=== PATIENT | female | born 1940 | race Caucasian/White ===

== ENCOUNTER 2017-11-02 18:28 | Inpatient (IN) | payer MEDICARE ==
[~2017-11-02] VITALS: Ht 152.4 cm; Wt 49.9 kg
--- NOTE | 2017-11-02 18:40 | NUR ---
NO REPORT RECIEVED FROM [facility](SENDING FACILITY). PER EMT REPORT PT RECIEVED 325 MG OF TYLENOL AT 1500.
[2017-11-02] MEDS ORDERED: SIMV20TA6 PO (18:50)
[2017-11-02] MEDS ORDERED: CRAN250C PO (18:50)
[2017-11-02] MEDS ORDERED: TRIA60LO14 TP (18:50)
[2017-11-02] MEDS ORDERED: LORA0.5T PO (18:50)
[2017-11-02] MEDS ORDERED: RISP0.5T20 PO (18:50)
[2017-11-02] MEDS ORDERED: MULT1TAB73 PO (18:50)
[2017-11-02] MEDS ORDERED: CITA10TA17 PO (18:50)
[2017-11-02] MEDS ORDERED: ASPI-605 PO (18:50)
[2017-11-02] MEDS ORDERED: ERGO500040 PO (18:50)
[2017-11-02 20:22] LABS: BASOPHILS % (AUTO) 0.3 % (0.0-2.0); EOSINOPHILS % (AUTO) 0.2 % (0.0-7.0); HEMATOCRIT 37.6 % (31.2-41.9); HEMOGLOBIN 12.3 g/dL (10.9-14.3); LYMPHOCYTES # (AUTO) 0.9 K/uL (20.0-40.0); LYMPHOCYTES % (AUTO) 5.9 % (20.5-51.5); MEAN CORPUSCULAR HEMOGLOBIN 28.7 uug (24.7-32.8); MEAN CORPUSCULAR HGB CONC 33 g/dL (32.3-35.6); MEAN CORPUSCULAR VOLUME 87.4 fL (75.5-95.3); MONOCYTES # (AUTO) 0.7 K/uL (2.0-10.0); NEUTROPHILS % (AUTO) 88.6 % (38.5-71.5); PLATELET COUNT (AUTO) 314 K/uL (179-408); WHITE BLOOD COUNT (AUTO) 14.7 K/uL (3.8-11.8)
[2017-11-02 20:23] LABS: CARBON DIOXIDE 26 mmol/L (21-32); CHLORIDE 103 mmol/L (98-107); CREATININE 0.8 mg/dL (0.6-1.3); GLUCOSE 149 mg/dL (74-106); POTASSIUM 4.1 mmol/L (3.5-5.1); UREA NITROGEN, BLOOD 19 mg/dL (7-18)
[2017-11-02 20:35] LABS: ALANINE AMINOTRANSFERASE 17 U/L (14-59); ALKALINE PHOSPHATASE 89 U/L (50-136); ASPARTATE AMINOTRANSFERASE 16 U/L (15-37); BILIRUBIN,DIRECT 0.1 mg/dL (0.0-0.2); BILIRUBIN,TOTAL 0.2 mg/dL (0.2-1.0)
[2017-11-02 21:27] LABS: *BILIRUBIN,URIN NEGATIVE (NEGATIVE); *BLOOD, URINE Trace-intact (NEGATIVE); *CLARITY,URINE SLIGHTLY CLOUDY (CLEAR); *COLOR,URINE YELLOW (YELLOW); *KETONES,URINE NEGATIVE (NEGATIVE); *PROTEIN,URINE NEGATIVE (NEGATIVE); *UROBILINOGEN,URINE 0.2 E.U./dl (NORMAL); LEUKOCYTE ESTERASE ,URINE TRACE (NEGATIVE); NITRITE, URINE POSITIVE (NEGATIVE); PH,URINE 6.5 (5.0-8.0); UGLUCOSE NEGATIVE (NEGATIVE)
[2017-11-02 21:29] LABS: BACTERIA,URINE MANY /HPF (NONE SEEN); RBC,URINE 0-3 /HPF (0-3); SQUAMOUS EPITHELIAL CELL,UR MODERATE /HPF (NONE SEEN)
[2017-11-02] MEDS ORDERED: IV NS 1000 ML 1,000 ML IV ONE (22:00)
--- NOTE | 2017-11-02 22:30 | NUR ---
DANTE spoke to Dr. Fuller (ORTHO)
--- NOTE | 2017-11-02 22:40 | NUR ---
DANTE spoke to Dr. DAY
--- NOTE | 2017-11-02 22:52 | NUR ---
Pt. admitted to TELE, under care of Dr. DAY Belongs List completed
--- NOTE | 2017-11-02 23:55 | NUR ---
In from ER via [facility], 77 y/o female patient admitted to Telemetry, Dx. Left hip fracture. Patient awake, alert able to respond verbally, unclear speech noted. Pleasantly confused no SOB noted. Sinus rhythm on the monitor. Vital signs WNL. Dr. Garcia notified, received orders & carried out. IVF D5 1/2 NS at 75 ml/hr started as ordered. Right AC line intact/patent. Routine admission assessment done. Kept comfortable.
[2017-11-03] VITALS: BP 149/81
[2017-11-03] MEDS ORDERED: ACETAMINOPHEN 650 MG SUPP.RECT RC PRN
[2017-11-03] MEDS ORDERED: ONDANSETRON 4 MG/2 ML VIAL IV PRN
[2017-11-03] MEDS ORDERED: HYDROMORPHONE 2 MG/1 ML DISP.SYRIN IV PRN
[2017-11-03] MEDS: IV D5 1/2 NS 1000 ML 1,000 ML IV PRN ×2 (00:08→15:31)
[2017-11-03 04:00] VITALS: BP 132/76
--- NOTE | 2017-11-03 05:40 | NUR ---
Fairly rested, patient talking to herself. NPO status except meds. Sinus rhythm on the monitor. Afebrile. Repositioned in bed, hip precaution observed. Will continue to monitor. Call light within reach.
[2017-11-03 06:22] LABS: BASOPHILS # (AUTO) 0.1 K/uL (0.0-8.0); EOSINOPHILS % (AUTO) 0.3 % (0.0-7.0); HEMATOCRIT 37.6 % (31.2-41.9); HEMOGLOBIN 12.6 g/dL (10.9-14.3); LYMPHOCYTES # (AUTO) 1.4 K/uL (20.0-40.0); LYMPHOCYTES % (AUTO) 11.4 % (20.5-51.5); MEAN CORPUSCULAR HEMOGLOBIN 29.1 uug (24.7-32.8); MEAN CORPUSCULAR HGB CONC 33 g/dL (32.3-35.6); MEAN CORPUSCULAR VOLUME 87.1 fL (75.5-95.3); MONOCYTES % (AUTO) 7.8 % (0.0-11.0); NEUTROPHILS # (AUTO) 10.1 K/uL (1.8-8.9); NEUTROPHILS % (AUTO) 79.5 % (38.5-71.5); PLATELET COUNT (AUTO) 275 K/uL (179-408); RED BLOOD CELL COUNT(AUTO) 4.32 MIL/uL (3.63-4.92); WHITE BLOOD COUNT (AUTO) 12.7 K/uL (3.8-11.8)
[2017-11-03 06:39] LABS: CARBON DIOXIDE 26 mmol/L (21-32); CHLORIDE 103 mmol/L (98-107); CREATININE 0.7 mg/dL (0.6-1.3); GLUCOSE 136 mg/dL (74-106); PHOSPHOROUS 3.4 mg/dL (2.5-4.9); POTASSIUM 4.3 mmol/L (3.5-5.1); UREA NITROGEN, BLOOD 13 mg/dL (7-18)
--- NOTE | 2017-11-03 08:00 | NUR ---
PATIENT ALERT BUT CONFUSED X3, KEPT NPO EXCEPT MEDS FOR POSSIBLE SURGERY AWAITING DR MALONE FOR ORDERS. WITH CONTINUOUS IV D5 1/2 NS AT 75ML/HR
[2017-11-03] MEDS ORDERED: LORAZEPAM 0.5 MG TABLET PO PRN (08:30)
[2017-11-03] MEDS: CITALOPRAM 10 MG TABLET PO SCH (09:00)
[2017-11-03] MEDS: ASPIRIN EC 81 MG TABLET.DR PO SCH (09:00)
[2017-11-03] MEDS: risperiDONE 0.5 MG TABLET PO SCH ×2 (09:00→15:40)
[2017-11-03 11:23] VITALS: BP 130/68
--- NOTE | 2017-11-03 11:30 | NUR ---
ATTEMPTED TO CONTACT PT'S CONSERVATOR AIMEE ALVAREZ FOR CONSENT LEFT HIP BIPOLAR REPLACEMENT. ATTEMPTED TO CONTACT "[facility]" PER ANSWERING MACHINE IN CASE OF EMERGENCIES, NO RESPONSE. ATTEMPTED TO CALL TO INFORM HIM OF SITUATION, MESSAGE LEFT.
--- NOTE | 2017-11-03 11:30 | NUR ---
NEXT OF KIN PIOTR (NIECE) AND ADAL GOMEZ (SISTER) WERE CONTACTED FOR CONSENT OF THE PT'S LEFT HIP BIPOLAR REPLACEMENT. FAMILY VERBALIZED THAT THEY DON'T MAKE DECISIONS FOR PT BECAUSE SHE HAS A CONSERVATOR. CALLED [facility] TO RECEIVE CONSERVATOR CONTACT INFO.
[2017-11-03] MEDS: ENOXAPARIN SODIUM 30 MG/0.3 ML DISP.SYRIN SUBCUT SCH (13:18)
[2017-11-03 15:32] VITALS: BP 150/77
[2017-11-03 15:50] VITALS: BP 150/68
--- NOTE | 2017-11-03 16:40 | NUR ---
TRIED TO REACH NEXT OF KIN FOR FOLLOW UP REGARDING CONSENT FOR SURGERY TO NO AVAIL. MESSAGE LEFT. DR MALONE AND O.R. AWARE.
--- NOTE | 2017-11-03 19:53 | NUR ---
Attempted to reach next of kin for procedure consent. Unable to reach.
[2017-11-03] MEDS: SIMVASTATIN 20 MG TABLET PO SCH (20:17)
[2017-11-03 20:30] VITALS: BP 136/76
[2017-11-04 05:39] VITALS: BP 151/83
[2017-11-04 06:20] LABS: BASOPHILS # (AUTO) 0.1 K/uL (0.0-8.0); BASOPHILS % (AUTO) 0.7 % (0.0-2.0); EOSINOPHILS # (AUTO) 0.1 K/uL (0.0-0.7); EOSINOPHILS % (AUTO) 0.9 % (0.0-7.0); HEMATOCRIT 39.7 % (31.2-41.9); HEMOGLOBIN 13.1 g/dL (10.9-14.3); LYMPHOCYTES # (AUTO) 1.3 K/uL (20.0-40.0); LYMPHOCYTES % (AUTO) 11.2 % (20.5-51.5); MEAN CORPUSCULAR HEMOGLOBIN 28.8 uug (24.7-32.8); MEAN CORPUSCULAR HGB CONC 33 g/dL (32.3-35.6); MEAN CORPUSCULAR VOLUME 87.1 fL (75.5-95.3); MONOCYTES # (AUTO) 1.3 K/uL (2.0-10.0); MONOCYTES % (AUTO) 10.5 % (0.0-11.0); NEUTROPHILS # (AUTO) 9.2 K/uL (1.8-8.9); NEUTROPHILS % (AUTO) 76.7 % (38.5-71.5); PLATELET COUNT (AUTO) 296 K/uL (179-408); RED BLOOD CELL COUNT(AUTO) 4.56 MIL/uL (3.63-4.92)
[2017-11-04 06:33] LABS: ALANINE AMINOTRANSFERASE 19 U/L (14-59); ALKALINE PHOSPHATASE 77 U/L (50-136); ASPARTATE AMINOTRANSFERASE 17 U/L (15-37); BILIRUBIN,TOTAL 0.5 mg/dL (0.2-1.0); CARBON DIOXIDE 25 mmol/L (21-32); CHLORIDE 102 mmol/L (98-107); CREATININE 0.7 mg/dL (0.6-1.3); GLUCOSE 134 mg/dL (74-106); MAGNESIUM 2.1 mg/dL (1.8-2.4); PHOSPHOROUS 2.9 mg/dL (2.5-4.9); POTASSIUM 3.9 mmol/L (3.5-5.1); TOTAL PROTEIN, SERUM 7.4 g/dL (6.4-8.2); UREA NITROGEN, BLOOD 7 mg/dL (7-18)
[2017-11-04] MEDS: IV D5 1/2 NS 1000 ML 1,000 ML IV PRN (06:34)
[2017-11-04] MEDS: ENOXAPARIN SODIUM 30 MG/0.3 ML DISP.SYRIN SUBCUT SCH (08:29)
[2017-11-04] MEDS: ASPIRIN EC 81 MG TABLET.DR PO SCH (08:29)
[2017-11-04] MEDS: risperiDONE 0.5 MG TABLET PO SCH ×2 (08:33→17:00)
[2017-11-04] MEDS: CITALOPRAM 10 MG TABLET PO SCH (08:33)
[2017-11-04] MEDS: MULTIVITAMINS,THERAPEUTIC TABLET PO SCH (08:33)
--- NOTE | 2017-11-04 08:48 | NUR ---
Notified of pt's labs and fever. Received orders to hold Aspirin and Lovenox.
[2017-11-04] MEDS ORDERED: ERGOCALCIFEROL 50,000 UNIT CAPSULE PO SCH (09:00)
[2017-11-04] MEDS ORDERED: TRIAMCINOLONE ACETONIDE 0.1% 60 ML LOTION BOTTLE TP PRN (09:00)
[2017-11-04] MEDS: POTASSIUM CHLORIDE 10 MEQ in IV NS 1000 ML 1,000 ML IV PRN ×2 (10:54→20:33)
[2017-11-04 11:40] VITALS: BP 119/62
[2017-11-04] MEDS ORDERED: VECURONIUM BROMIDE 10 MG VIAL IV ONE (12:02)
[2017-11-04] MEDS ORDERED: DEXAMETHASONE SOD PHOSPHATE 4 MG INJ IV ONE (12:02)
[2017-11-04] MEDS ORDERED: SEVOFLURANE 250 ML BOTTLE IH ONE (12:02)
[2017-11-04] MEDS ORDERED: ONDANSETRON 4 MG/2 ML VIAL IV ONE (12:02)
[2017-11-04] MEDS ORDERED: CEFAZOLIN 1 G VIAL MC ONE (12:02)
[2017-11-04] MEDS ORDERED: IV NORMAL SALINE 1000 ML BAG IV ONE (12:02)
[2017-11-04] MEDS ORDERED: ETOMIDATE 20 MG/10 ML VIAL MC ONE (12:02)
[2017-11-04 15:33] VITALS: BP 137/72
--- NOTE | 2017-11-04 15:50 | NUR ---
Called Dr. Fuller to report no type and cross match ordered, no preop antibiotic, WBC = 12, UA shows bacteria in urine, temp this AM 99.5. Afebrile at this time. Attempted to reach Dr hancock 3. Called office, called surgery, called other office, called cell phone and left message.
--- NOTE | 2017-11-04 16:15 | NUR ---
Unable to reach Dr. Fuller, surgery department called and notified elevated WBC, earlier fever in AM, no blood type and cross match available for surgery, no preop antibiotic.
[2017-11-04] MEDS ORDERED: POLYMYXIN B SULFATE 500,000 UNITS, BACITRACIN 50,000 UNITS, NORMAL SALINE 20 ML MC ONE ×3 (16:45)
[2017-11-04] MEDS ORDERED: VANCOMYCIN 1000 MG VIAL ONE (17:40)
--- NOTE | 2017-11-04 19:10 | NUR ---
Received report from day shift nurse henry Barrett downstairs undergoing ORIF of left hip at this time.
[2017-11-04] MEDS ORDERED: MORPHINE SULFATE 4 MG/1 ML DISP.SYRIN IV PRN (19:15)
[2017-11-04] MEDS ORDERED: HYDROCODONE/APAP 10-325 MG TABLET PO PRN (19:30)
--- NOTE | 2017-11-04 19:45 | NUR ---
Received patient from post op, accompanied by nurse Griffin and provided report of pt current condition. Patient asleep at this time. Arouse to verbal and tactile stimuli. kept her eyes closed, only mumbles. No s/sx of pain or SOB noted. RFA IV site intact and patent. IVF infusing. Temp os 99.3. Cooling measure provided. Left hip with dressing intact. Safety measure initiated and call bruner within reach. Addendum: 11/05/17 at 0643 by RICHMOND LEON RN Pt will be on regular diet per SHAUNA/Gaby.
[2017-11-04 20:00] VITALS: BP 123/62
[2017-11-04] MEDS: SIMVASTATIN 20 MG TABLET PO SCH (20:32)
--- NOTE | 2017-11-04 23:00 | NUR ---
Temp. down to 98.0 Orally.
[2017-11-05] MEDS: CEFAZOLIN 1 G in PREMIXED 1 EACH IV SCH ×2 (00:40→05:16)
[2017-11-05 04:00] VITALS: BP 116/65
--- NOTE | 2017-11-05 06:06 | NUR ---
Patient appears comfortable in bed. Arouse to verbal and tactile stimuli. Only mumbles. On O2 at 2LPM via NC in place. O2 sat at 99%. IV site on RFA intact and patent. IVF infusing. No adverse reaction noted from IV ABX. Left hip with dressing intact. Abductor pillow in place. FC intact and draining via gravity. Safety measure maintained and call bruner within reach.
[2017-11-05 06:14] LABS: BASOPHILS % (AUTO) 0.2 % (0.0-2.0); HEMATOCRIT 33.8 % (31.2-41.9); HEMOGLOBIN 11.2 g/dL (10.9-14.3); LYMPHOCYTES # (AUTO) 0.7 K/uL (20.0-40.0); LYMPHOCYTES % (AUTO) 5.6 % (20.5-51.5); MEAN CORPUSCULAR HGB CONC 33 g/dL (32.3-35.6); MEAN CORPUSCULAR VOLUME 87.5 fL (75.5-95.3); MONOCYTES # (AUTO) 1.5 K/uL (2.0-10.0); MONOCYTES % (AUTO) 11.8 % (0.0-11.0); NEUTROPHILS # (AUTO) 10.6 K/uL (1.8-8.9); NEUTROPHILS % (AUTO) 82.4 % (38.5-71.5); PLATELET COUNT (AUTO) 279 K/uL (179-408); RED BLOOD CELL COUNT(AUTO) 3.86 MIL/uL (3.63-4.92); WHITE BLOOD COUNT (AUTO) 12.9 K/uL (3.8-11.8)
[2017-11-05 07:06] LABS: ALANINE AMINOTRANSFERASE 17 U/L (14-59); ALKALINE PHOSPHATASE 58 U/L (50-136); ASPARTATE AMINOTRANSFERASE 32 U/L (15-37); BILIRUBIN,TOTAL 0.3 mg/dL (0.2-1.0); CARBON DIOXIDE 24 mmol/L (21-32); CHLORIDE 107 mmol/L (98-107); CREATININE 0.7 mg/dL (0.6-1.3); GLUCOSE 132 mg/dL (74-106); PHOSPHOROUS 2.9 mg/dL (2.5-4.9); POTASSIUM 4.5 mmol/L (3.5-5.1); TOTAL PROTEIN, SERUM 6.3 g/dL (6.4-8.2); UREA NITROGEN, BLOOD 10 mg/dL (7-18)
--- NOTE | 2017-11-05 09:29 | NUR ---
Seen by PT: 2person assist, unable to follow commands. PT will come back later in the day
[2017-11-05] MEDS: CITALOPRAM 10 MG TABLET PO SCH (09:30)
[2017-11-05] MEDS: CEFTRIAXONE 1 G in IV DEXTROSE 5% 50 ML IV SCH (09:30)
[2017-11-05] MEDS: MULTIVITAMINS,THERAPEUTIC TABLET PO SCH (09:30)
[2017-11-05] MEDS: risperiDONE 0.5 MG TABLET PO SCH ×2 (09:31→17:35)
[2017-11-05] MEDS: ASPIRIN EC 81 MG TABLET.DR PO SCH (09:31)
[2017-11-05] MEDS: ENOXAPARIN SODIUM 30 MG/0.3 ML DISP.SYRIN SUBCUT SCH (09:32)
--- NOTE | 2017-11-05 10:15 | NUR ---
Gila Kingsley called stating that she's the pt's sister and wants to be informed were the pt gets discharge too. Will inform case management
[2017-11-05 11:39] VITALS: BP 103/56
[2017-11-05] MEDS: POTASSIUM CHLORIDE 10 MEQ in IV NS 1000 ML 1,000 ML IV PRN (14:09)
--- NOTE | 2017-11-05 14:25 | NUR ---
Pre-medicated pt for physical therapy session
--- NOTE | 2017-11-05 14:45 | NUR ---
Per PT patient's BP in the 70's. Gave pt juice and water, then placed pt in Trendelenburg position. Pt is arousable to name. Pt is able to answer question in [place] if she is okay, "[place]".
--- NOTE | 2017-11-05 15:05 | NUR ---
Call MD to inform about decrease BP, waiting for a call back
[2017-11-05 15:25] VITALS: BP 76/38
[2017-11-05 15:40] VITALS: BP 82/36
[2017-11-05 17:35] VITALS: BP 107/57
--- NOTE | 2017-11-05 19:20 | NUR ---
Received pt lying in bed. Patient asleep, arouse to verbal and tactile stimuli, opens her eyes half way. Non-verbal. O2 at 2LPM via NC in place. O2 sat at 98%. No s/sx of pain or SOB noted. RFA IV site intact and patent. IVF infusing. Left hip dressing remains intact. Safety measure initiated and call bruner within reach.
[2017-11-05 20:03] VITALS: BP 104/55
[2017-11-05] MEDS: SIMVASTATIN 20 MG TABLET PO SCH (21:09)
[2017-11-06] MEDS: POTASSIUM CHLORIDE 10 MEQ in IV NS 1000 ML 1,000 ML IV PRN ×2 (03:48→18:25)
[2017-11-06 04:00] VITALS: BP 117/61
--- NOTE | 2017-11-06 05:51 | NUR ---
Patient slept well last night, arouse to verbal and tactile stimuli, non-verbal, mumbles at times. On O2 at 2LPM via NC in place. O2 sat at 100%. IV site on RFA intact and patent. IVF infusing. Left hip with dressing remains intact. Abductor pillow in place. FC intact and draining via gravity. Safety measure maintained and call bruner within reach.
--- NOTE | 2017-11-06 07:10 | NUR ---
RECEIVED REPORT FROM EXTENSION WORK INSTRUCTOR NURSE, PATIENT IN BED ASLEEP, NO DISTRESS NOTED, BED IN LOW POSITION, SIDE RAILS UP X2.
[2017-11-06] MEDS: ASPIRIN EC 81 MG TABLET.DR PO SCH (08:08)
[2017-11-06] MEDS: CEFTRIAXONE 1 G in IV DEXTROSE 5% 50 ML IV SCH (08:08)
[2017-11-06] MEDS: MULTIVITAMINS,THERAPEUTIC TABLET PO SCH (08:08)
[2017-11-06] MEDS: CITALOPRAM 10 MG TABLET PO SCH (08:08)
[2017-11-06] MEDS: risperiDONE 0.5 MG TABLET PO SCH ×2 (08:08→16:12)
[2017-11-06] MEDS: ENOXAPARIN SODIUM 30 MG/0.3 ML DISP.SYRIN SUBCUT SCH (08:10)
--- NOTE | 2017-11-06 09:44 | NUR ---
Removed sultana per protocol, post-op day two
[2017-11-06 11:47] VITALS: BP 108/53
[2017-11-06 13:12] LABS: BASOPHILS % (AUTO) 0.2 % (0.0-2.0); EOSINOPHILS # (AUTO) 0.1 K/uL (0.0-0.7); EOSINOPHILS % (AUTO) 1.2 % (0.0-7.0); HEMATOCRIT 26.1 % (31.2-41.9); HEMOGLOBIN 8.7 g/dL (10.9-14.3); LYMPHOCYTES % (AUTO) 9.8 % (20.5-51.5); MEAN CORPUSCULAR HEMOGLOBIN 29.3 uug (24.7-32.8); MEAN CORPUSCULAR HGB CONC 33 g/dL (32.3-35.6); MEAN CORPUSCULAR VOLUME 87.6 fL (75.5-95.3); MONOCYTES # (AUTO) 1.3 K/uL (2.0-10.0); MONOCYTES % (AUTO) 12.6 % (0.0-11.0); NEUTROPHILS # (AUTO) 7.7 K/uL (1.8-8.9); NEUTROPHILS % (AUTO) 76.2 % (38.5-71.5); PLATELET COUNT (AUTO) 265 K/uL (179-408); RED BLOOD CELL COUNT(AUTO) 2.98 MIL/uL (3.63-4.92); WHITE BLOOD COUNT (AUTO) 10.1 K/uL (3.8-11.8)
[2017-11-06 13:26] LABS: ALANINE AMINOTRANSFERASE 27 U/L (14-59); ALKALINE PHOSPHATASE 60 U/L (50-136); ASPARTATE AMINOTRANSFERASE 54 U/L (15-37); BILIRUBIN,TOTAL 0.2 mg/dL (0.2-1.0); CARBON DIOXIDE 27 mmol/L (21-32); CHLORIDE 105 mmol/L (98-107); CREATININE 0.6 mg/dL (0.6-1.3); GLUCOSE 133 mg/dL (74-106); PHOSPHOROUS 2.3 mg/dL (2.5-4.9); POTASSIUM 3.8 mmol/L (3.5-5.1); TOTAL PROTEIN, SERUM 5.8 g/dL (6.4-8.2); UREA NITROGEN, BLOOD 11 mg/dL (7-18)
[2017-11-06 16:05] VITALS: BP 90/47
[2017-11-06] MEDS: ASPIRIN EC 325 MG TABLET.DR PO SCH (17:02)
--- NOTE | 2017-11-06 18:00 | NUR ---
PATIENT HAS BEEN COOPERATIVE WITH CARE, PATIENT ONLY COMPLAINED OF MILD HEADACHE. PATIENT GOT UP WITH PHYSICAL THERAPY TWICE. PATIENT REMAINS STABLE, NO DISTRESS NOTED, BED IN LOW POSITION, SIDE RAILS UP X2, BED IN LOW POSITION, SIDE RAILS UP X2.
[2017-11-06 19:00] VITALS: BP 90/41
[2017-11-06] MEDS ORDERED: NEUTRA PHOS PACKET PO ONE (19:15)
--- NOTE | 2017-11-06 19:30 | NUR ---
RECEIVED PATIENT AWAKE ON BED. AO X 1, BUT NON VERBAL. NO SIGNS OF RESPIRATORY DISTRESS. ON O2 AT 2L/MIN VIA NC, O2 SATURATION AT 96%. IV ON LEFT FOREARM, PATENT AND INTACT. IVF INFUSING. SAFETY MEASURES INITIATED. CALL MACIAS WITHIN REACH.
[2017-11-06] MEDS: SIMVASTATIN 20 MG TABLET PO SCH (20:21)
[2017-11-07 04:00] VITALS: BP 120/60
[2017-11-07 06:39] LABS: MAGNESIUM 1.8 mg/dL (1.8-2.4); PHOSPHOROUS 2.5 mg/dL (2.5-4.9)
--- NOTE | 2017-11-07 06:52 | NUR ---
PATIENT REMAINED RESTED. NO SOB, NO CHEST PAIN, VITAL SIGNS WNL. SAFETY MEASURES MAINTAINED.
[2017-11-07 07:00] LABS: BASOPHILS % (AUTO) 0.4 % (0.0-2.0); EOSINOPHILS # (AUTO) 0.2 K/uL (0.0-0.7); HEMATOCRIT 24.5 % (31.2-41.9); HEMOGLOBIN 8.3 g/dL (10.9-14.3); LYMPHOCYTES # (AUTO) 1.3 K/uL (20.0-40.0); LYMPHOCYTES % (AUTO) 12.4 % (20.5-51.5); MEAN CORPUSCULAR HEMOGLOBIN 29.7 uug (24.7-32.8); MEAN CORPUSCULAR HGB CONC 34 g/dL (32.3-35.6); MEAN CORPUSCULAR VOLUME 87.3 fL (75.5-95.3); MONOCYTES # (AUTO) 1.2 K/uL (2.0-10.0); MONOCYTES % (AUTO) 10.9 % (0.0-11.0); NEUTROPHILS # (AUTO) 8.1 K/uL (1.8-8.9); NEUTROPHILS % (AUTO) 74.3 % (38.5-71.5); PLATELET COUNT (AUTO) 273 K/uL (179-408); RED BLOOD CELL COUNT(AUTO) 2.81 MIL/uL (3.63-4.92); WHITE BLOOD COUNT (AUTO) 10.9 K/uL (3.8-11.8)
[2017-11-07] MEDS ORDERED: PANTOPRAZOLE SODIUM 40 MG TABLET.DR PO SCH (07:00)
--- NOTE | 2017-11-07 07:10 | NUR ---
received report from welder 2nd shift nurse, patient in bed asleep, no distress noted, bed in low position, side rails up x2, bed alarm on.
[2017-11-07] MEDS: MULTIVITAMINS,THERAPEUTIC TABLET PO SCH (08:33)
[2017-11-07] MEDS: CITALOPRAM 10 MG TABLET PO SCH (08:33)
[2017-11-07] MEDS: CEFTRIAXONE 1 G in IV DEXTROSE 5% 50 ML IV SCH (08:33)
[2017-11-07] MEDS: risperiDONE 0.5 MG TABLET PO SCH (08:33)
[2017-11-07] MEDS: ASPIRIN EC 325 MG TABLET.DR PO SCH (08:33)
[2017-11-07] MEDS ORDERED: HYDR-548 PO (09:40)
[2017-11-07] MEDS ORDERED: PANT40TA2 PO (09:40)
[2017-11-07] MEDS ORDERED: CEFT1VIA15 IV (09:40)
[2017-11-07] MEDS ORDERED: ASPI-610 PO (09:40)
[2017-11-07 11:45] VITALS: BP 95/48
--- NOTE | 2017-11-07 13:00 | NUR ---
Patient was given discharge instructions, but unable to comprehend or respond appropriately. IV was removed, belongings accounted for, and education given as tolerated. Report called to Rika at [facility]. Patient's vitals were recorded by EMT, and patient picked up for transfer.
== END 2017-11-07 13:25 | DRG 469 ==
LOC: ER 18:28 → TELE 23:05 → MED 11-03 12:25
PROVIDERS: ADMIT Internal Medicine; ATTEND Internal Medicine
PROC: 0SRS0JA Replacement of Left Hip Joint, Femoral Surface with Synthetic Substitute, Uncemented, Open Approach (ICD-10-PCS; principal; 2017-11-04 17:10)
DX: S72.012A Unspecified intracapsular fracture of left femur, initial encounter for closed fracture (principal); A41.9 Sepsis, unspecified organism; N39.0 Urinary tract infection, site not specified; W19.XXXA Unspecified fall, initial encounter; Y92.099 Unspecified place in other non-institutional residence as the place of occurrence of the external cause; F03.90 Unspecified dementia, unspecified severity, without behavioral disturbance, psychotic disturbance, mood disturbance, and anxiety; E78.5 Hyperlipidemia, unspecified; B96.20 Unspecified Escherichia coli [E. coli] as the cause of diseases classified elsewhere; Z86.73 Personal history of transient ischemic attack (TIA), and cerebral infarction without residual deficits; D50.9 Iron deficiency anemia, unspecified; I10 Essential (primary) hypertension; G93.89 Other specified disorders of brain; Z79.82 Long term (current) use of aspirin; Z96.642 Presence of left artificial hip joint; M48.02 Spinal stenosis, cervical region; I70.0 Atherosclerosis of aorta
CPT/HCPCS: 36415; 51702; 70030-TC; 70450; 71045; 72125; 72170; 73501; 73502; 83550; 83605; 83735; 84100; 85025; 85730; 87040; 87077; 87086; 93005; 93307; 97110; 97116; 97530; A4663; C1776; J0690; J0696; J1100; J1170; J1650; J2270; J2405; J3370; J3480; J3490; J7030; J7060